=== PATIENT | male | born 1995 | race Asian ===

== ENCOUNTER 2020-04-23 10:00 | Outpatient (CLI) | payer MEDICAID | END 2020-04-23 23:59 | disposition home or self-care (01) | LOC: COV 10:00 | PROVIDERS: ATTEND Family Medicine | DX: Z20.828 Contact with and (suspected) exposure to other viral communicable diseases (principal) ==

== ENCOUNTER 2022-02-07 11:08 | Emergency (ER) | payer MEDICAID ==
[2022-02-07 11:34] LABS: BILIRUBIN,URINE NEGATIVE (NEGATIVE); CLARITY,URINE CLEAR (CLEAR); GLUCOSE, URINE (UA) NEGATIVE (NEGATIVE); KETONES,URINE (UA) NEGATIVE (NEGATIVE); LEUKOCYTE ESTERASE, URINE NEGATIVE (NEGATIVE); NITRITE,URINE NEGATIVE (NEGATIVE); OCCULT BLOOD,URINE NEGATIVE (NEGATIVE); PROTEIN,URINE NEGATIVE (NEGATIVE); UROBILINOGEN,URINE 0.2 (NORMAL) E.U./dL (NORMAL)
[2022-02-07 11:50] LABS: BASOPHILS # (AUTO) 0.1 10^3/uL (0.0-0.1); EOSINOPHILS # (AUTO) 0.1 10^3/uL (0.0-0.7); HCT - HEMATOCRIT 44.2 % (42.0-52.0); LYMPHOCYTES % (AUTO) 22.6 %; MEAN CORPUSCULAR HEMOGLOBIN 28.5 pg (27.0-31.0); MEAN CORPUSCULAR HGB CONC 33.9 g/dL (32.0-36.0); MEAN CORPUSCULAR VOLUME 83.9 fL (80.0-94.0); MEAN PLATELET VOLUME 9.5 fL (7.4-11.4); MONOCYTES # (AUTO) 0.9 10^3/uL (0.0-1.0); MONOCYTES % (AUTO) 9.9 %; NEUTROPHILS # (AUTO) 5.9 10^3/uL (1.5-6.6); NEUTROPHILS % (AUTO) 65.2 %; PLT - PLATELET COUNT 252 10^3/uL (130-450); RED BLOOD COUNT 5.27 10^6/uL (4.70-6.10); RED CELL DISTRIBUTION WIDTH 12.2 % (12.0-15.0)
[2022-02-07 12:03] LABS: ALBUMIN 4.2 g/dL (3.2-5.5); ALBUMIN/GLOBULIN RATIO 1.2 (1.0-2.2); BILIRUBIN,TOTAL 0.4 mg/dL (0.2-1.0); CALCIUM 9.4 mg/dL (8.5-10.3); POTASSIUM 3.9 mmol/L (3.5-5.0); TOTAL PROTEIN 7.6 g/dL (6.7-8.2)
--- NOTE | 2022-02-07 13:17 | ED Physician Documentation ---
History of Present Illness - Stated complaint Stated Complaint: FEVER/CHILLS/NAUSEA - Chief complaint Chief Complaint: Abd Pain - Additonal information Additional information: 27-year-old male presents emergency department for evaluation of fevers, chills nausea and inguinal pain. Reports Monday morning he woke up and had pain in his right inguinal area. He did not think much of it however over the last 2 days he is now progressed to have fever and chills. He is also having pain now on the left inguinal side and pain in both his scrotum. He denies dysuria but has a sensation of a full bladder when needing to urinate which is unusual for him. Denies any pertinent past medical history. No past surgical history. He is sexually active. Monogamous. 1 partner uses condoms. No penile discharge Review of Systems Constitutional: denies: Fever, Chills Eyes: reports: Reviewed and negative Nose: reports: Reviewed and negative Throat: reports: Reviewed and negative Cardiac: reports: Reviewed and negative Respiratory: reports: Reviewed and negative GI: reports: Reviewed and negative : reports: Testicular pain, Other (Bilateral inguinal pain right greater than left) Skin: denies: Rash, Lesions Musculoskeletal: reports: Reviewed and negative PD PAST MEDICAL HISTORY - Past Surgical History Past Surgical History: No - Present Medications Home Medications: Ambulatory Orders Medication Instructions Recorded Confirmed Clindamycin [Cleocin] 450 mg PO TID 7 Days #63 cap 02/07/22 - Allergies Allergies/Adverse Reactions: Allergies Allergy/AdvReac Type Severity Reaction Status Date / Time No Known Drug Allergies Allergy Verified 02/07/22 11:27 - Social History Does the pt smoke?: No Smoking Status: Never smoker Does the pt drink ETOH?: Yes Does the pt have substance abuse?: No - Immunizations Immunizations are current?: Yes - POLST Patient has POLST: No PD ED PE NORMAL - General General: Alert and oriented X 3, No acute distress - HEENT HEENT: PERRL - Neck Neck: Supple, no meningeal sign - Cardiac Cardiac: RRR, No murmur - Respiratory Respiratory: No respiratory distress, Clear bilaterally - Abdomen Abdomen: Normal bowel sounds, Soft. No: Non tender (Lower midline suprapubic pain.) - Male Male : Md Allergy Immunology present, Other (Tenderness within the right inguinal area. No hernia was appreciated with Valsalva. Bilateral testicular tenderness. Positive cremasteric bilaterally) - Back Back: No CVA TTP, No spinal TTP - Derm Derm: Normal color, Warm and dry - Extremities Extremities: No deformity - Neuro Neuro: Alert and oriented X 3, welcome center agent 2-12 intact Eye Opening: Spontaneous Motor: Obeys Commands Verbal: Oriented GCS Score: 15 Results - Vitals Vitals: Vital Signs - 24 hr 02/07/22 02/07/22 02/07/22 11:20 13:01 15:00 Temperature 37.3 C Heart Rate 108 H 96 99 Respiratory 14 14 16 Rate Blood Pressure 152/89 H 134/84 H O2 Saturation 98 98 99 Oxygen O2 Source Room air - Labs Labs: Laboratory Tests 02/07/22 02/07/22 02/07/22 11:27 11:46 11:46 WBC 9.0 RBC 5.27 Hgb 15.0 Hct 44.2 MCV 83.9 MCH 28.5 MCHC 33.9 RDW 12.2 Plt Count 252 MPV 9.5 Neut # (Auto) 5.9 Lymph # (Auto) 2.0 [place] # (Auto) 0.9 Eos # (Auto) 0.1 Baso # (Auto) 0.1 Absolute Nucleated RBC 0.00 Nucleated RBC % 0.0 Sodium 137 Potassium 3.9 Chloride 101 Carbon Dioxide 28 Anion Gap 8.0 BUN 11 Creatinine 1.0 Estimated GFR (MDRD) 89 Glucose 119 H Calcium 9.4 Total Bilirubin 0.4 AST 19 ALT 28 Alkaline Phosphatase 48 Total Protein 7.6 Albumin 4.2 Globulin 3.4 Albumin/Globulin Ratio 1.2 Lipase 37 Urine Color STRAW Urine Clarity CLEAR Urine pH 6.0 Ur Specific [place] <=1.005 Urine Protein NEGATIVE Urine Glucose (UA) NEGATIVE Urine Ketones NEGATIVE Urine Occult Blood NEGATIVE Urine Nitrite NEGATIVE Urine Bilirubin NEGATIVE Urine Urobilinogen 0.2 (NORMAL) Ur Leukocyte Esterase NEGATIVE Ur Microscopic Review NOT INDICATED Urine Culture Comments NOT INDICATED - Rads (name of study) Testicular US Radiology: Final report received (Hypervascular left scrotal wall may reflect cellulitis. Scrotal contents are unremarkable bilaterally) ABD CT Radiology: Final report received (Nonspecific subcutaneous fat stranding in the bilateral inguinal regions with mild associated reactive lymphadenopathy. Correlate for regional infectious or inflammatory process.) PD MEDICAL DECISION MAKING - ED course Complexity details: reviewed results, re-evaluated patient, considered differential, d/w patient, d/w cyber security consultant ([place]) ED course: 19-year-old male presents emergency department for evaluation of lower inguinal pain that began Lonny with associated fevers chills and myalgias. On exam I did appreciate some mild lymphadenopathy in the right inguinal region though no true scrotal tenderness was elicited. CBC and electrolytes were unrevealing. He has no fever here. No leukocytosis. UA was not consistent with infection. Scrotal ultrasound reveals hyperemia of the left scrotal sac which could represent early cellulitis. Subsequent CT shows reactive lymphadenopathy. No free air or gas formation. This case was briefly discussed with Dr. Rodrigues Urology on-call at [facility]. Patient will be started on clindamycin. Will recommend very close follow-up with [facility]. Patient is to return immediately to the ER for worsening symptoms despite the initiation of antibiotics. Departure - Departure Disposition: Home, Self Care Clinical Impression: Cellulitis of scrotum Condition: Stable Record reviewed to determine appropriate education?: Yes Instructions: Cellulitis Dc Prescriptions: Clindamycin [Cleocin] 450 mg PO TID 7 Days #63 cap Comments: Jose you are seen today in the emergency department because you have had fevers chills and pain in your inguinal area. The imaging today suggest a bacterial infection of your scrotum. This is called cellulitis. In order to treat this I am starting you on a medication called clindamycin. You take 450 mg 3 times a day for the next week. I do recommend a warm compress to the scrotal area to help with pain. If you are having any worsening symptoms despite starting the antibiotics, have any worsening pain, fevers then you are to return immediately to the ER for a second evaluation Your antibiotics have been sent electronically to the [facility] in [place]
--- NOTE | 2022-02-07 14:16 | Ultrasound Report ---
PROCEDURE: Testicle w/Doppler INDICATIONS: Bilateral inguinal pain right greater than left. TECHNIQUE: Real-time scanning was performed of the scrotum and testicles, with image documentation. Color and p ulse Doppler interrogation was performed of both testicles. COMPARISON: None. FINDINGS: Right: Testicle is normal in size at 4.7 x 2.0 x 2.8 cm, and homogenous in echotexture. Epididymis is normal in overall size and morphology. No hydrocele or varicoceles. Overlying scrotal skin is no rmal in thickness. Left: Testicle is normal in size at 4.2 x 1.7 x 2.4 cm, and homogeneous in echotexture. Epididymis is normal in overall size and morphology. No hydrocele or varicoceles. Overlying scrotal skin is no rmal in thickness but does show hypervascularity. Doppler: Color and pulse Doppler demonstrate normal and symmetric arterial flow in both testicles. IMPRESSION: Hypervascular left scrotal wall may reflect cellulitis. Scrotal contents are unremarkable bilaterally Reviewed by: Tony Colby MD on 02/07/2022 1:15 PM [email or web address] Approved by: Tony Colby MD on 02/07/2022 1:15 PM AKDT Station ID: [id number]
--- NOTE | 2022-02-07 15:31 | CT Report ---
PROCEDURE: Abdomen/Pelvis WO INDICATIONS: bilateral inguinal pain; fevers TECHNIQUE: Noncontrast 5 mm thick sections acquired from the diaphragms to the symphysis. 5 mm coronal and sagi ttal reformats were then performed. For radiation dose reduction, the following was used: automated exposure control, adjustment of mA and/or kV according to patient size. COMPARISON: None. FINDINGS: Image quality: Excellent. ABDOMEN: Lung bases: Lung bases are clear. Heart size is normal. Solid organs: Liver and spleen are normal in size. Gallbladder normal Pancreas is normal in contou rs. No adrenal nodules. Kidneys are normal in size, without hydronephrosis or nephrolithiasis. Peritoneum and bowel: Unenhanced bowel loops demonstrate normal wall thickness and caliber. No free fluid or air. Nodes and vessels: No retroperitoneal or mesenteric adenopathy by size criteria. Aorta and inferior vena cava are normal in caliber. Miscellaneous: No ventral hernias. PELVIS: Genitourinary: Bladder wall thickness is normal. Miscellaneous: Bilateral inguinal region subcutaneous fat stranding. No fluid collection or mass. Mil d reactive bilateral inguinal lymphadenopathy. No inguinal hernia. Bones: No suspicious bony lesions. No vertebral body compression fractures. IMPRESSION: Nonspecific subcutaneous fat stranding in the bilateral inguinal regions with mild associated reactiv e lymphadenopathy. Correlate for regional infectious or inflammatory process. Reviewed by: Juan Carlos Mckinley MD on 02/07/2022 3:30 PM PDT Approved by: Juan Carlos Mckinley MD on 02/07/2022 3:30 PM PDT Station ID: [id number]
[2022-02-07] MEDS ORDERED: CLINDAMYCIN 150 MG CAPSULE PO STA (15:47)
[2022-02-07 16:13] VITALS: BP 137/87
== END 2022-02-07 16:13 | disposition home or self-care (01) ==
LOC: ED 11:08
DX: N49.2 Inflammatory disorders of scrotum (principal)
CPT/HCPCS: 36415; 74176; 76870; 80053; 81003; 83690; 85025; 93975; 99283; 99284; A9270; 81001; 87086

== ENCOUNTER 2024-01-07 17:39 | Emergency (ER) | payer MEDICAID, OTHER ==
--- NOTE | 2024-01-07 17:57 | ED Physician Documentation ---
PD HPI BACK PAIN - Stated complaint Stated Complaint: BACK PX - Chief complaint Chief Complaint: Back Pain - History obtained from History obtained from: Patient - Additional information Additional information: 28-year-old gentleman who is otherwise healthy. He had had some back soreness after doing a bike race a few weeks ago but they got much worse in the low back after doing some weight lifting about 6 days ago. It radiates a little bit into the right buttock. No weakness, numbness, tingling, saddle anesthesia, fevers, incontinence. 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 PD PAST MEDICAL HISTORY - Past Medical History Past Medical History: No - Past Surgical History Past Surgical History: No - Present Medications Home Medications: Ambulatory Orders Medication Instructions Recorded Confirmed Clindamycin [Cleocin] 450 mg PO TID 7 Days #63 cap 02/07/22 - Allergies Allergies/Adverse Reactions: Allergies Allergy/AdvReac Type Severity Reaction Status Date / Time No Known Drug Allergies Allergy Verified 01/07/24 17:44 - Social History Does the pt smoke?: No Smoking Status: Never smoker Does the pt drink ETOH?: Yes Does the pt have substance abuse?: No - Immunizations Immunizations are current?: Yes - POLST Patient has POLST: No PD ED PE NORMAL - Vitals Vital signs reviewed: Yes - General General: Alert and oriented X 3, No acute distress - Back Back: No spinal TTP - Extremities Extremities: Other (The patient has equal and normal Achilles and patellar reflexes bilaterally. Normal sensation in all areas of the legs. Patient denies saddle anesthesia. Normal strength in flexion-extension at the ankles, knees, and flexion of the hips.) - Neuro Neuro: Alert and oriented X 3, Normal speech Results - Vitals Vitals: Vital Signs - 24 hr 01/07/24 17:44 Temperature 36.9 C Heart Rate 88 Respiratory 18 Rate Blood Pressure 169/94 H O2 Saturation 100 Oxygen O2 Source Room air PD Medical Decision Making - ED course ED course: This patient has seemingly uncomplicated musculoskeletal back pain. The patient has no "red flags." Specifically denies IV drug use, fevers, incontinence, saddle anesthesia. Spinal epidural abscess was considered, given that the patient has no fever, is not diabetic, has no spinal tenderness, does not use IV drugs, and has no bilateral neurologic symptoms, the diagnosis of spinal epidural abscess is considered exceedingly unlikely. Departure - Departure Disposition: 01 Home, Self Care Clinical Impression: Back pain Qualifiers: Back pain location: low back pain Chronicity: acute Back pain laterality: bilateral Sciatica presence: without sciatica Qualified Code(s): M54.50 - Low back pain, unspecified Condition: Good Record reviewed to determine appropriate education?: Yes Instructions: ED Low Back Pain Injury Comments: I sent the prescription for muscle relaxers electronically to the [facility] in [place]. Do not drink or drive with them. Continue home PT as you have been. In addition to the muscle relaxer take an [id number] anti- inflammatory, either ibuprofen or naproxen per package instructions. Call your doctor to arrange a follow-up appointment, make the next available appointment. In the interim, return anytime if worse or if new symptoms develop.
[2024-01-07 18:01] VITALS: BP 169/94; O2SAT 100
[2024-01-07] MEDS: CYCLOBENZAPRINE 10 MG TABLET PO STA (18:05)
[2024-01-07] MEDS: NAPROXEN 250 MG TABLET PO STA (18:06)
--- NOTE | 2024-01-08 13:45 | ED Physician Documentation ---
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 Apparently none had been transmitted. I looked at the report from yesterday and the report does state some medications were prescribed on the comments section but none in the prescriptions. I picked tizanidine and meloxicam to prescribe for him and sent them to [facility] in [place].
== END 2024-01-07 18:09 | disposition home or self-care (01) ==
LOC: ED 17:39
DX: M54.50 Low back pain, unspecified (principal); X50.0XXA Overexertion from strenuous movement or load, initial encounter; Y93.B9 Activity, other involving muscle strengthening exercises
CPT/HCPCS: 99283; A9270